=== PATIENT | female | born 1970 | race Two or more races ===

== ENCOUNTER 2023-08-27 15:59 | Inpatient (IN) | payer OTHER ==
[~2023-08-27] VITALS: Ht 160 cm; Wt 88.5 kg
[2023-08-27] MEDS ORDERED: ZOLOFT100 MG PO (16:26)
[2023-08-27] MEDS ORDERED: RELAFEN DS1000 MG (16:27)
[2023-08-27] MEDS ORDERED: KETOROLAC TROMETHAMINE 60 MG VIAL IM ONE (18:00)
[2023-08-27 18:47] LABS: HEMATOCRIT 33.6 % (36.0-45.00); HEMOGLOBIN 11.1 g/dL (12.0-15.00); MEAN CELL VOLUME 70.3 fL (80.00-100.00); MEAN CORPUSCULAR HEMOGLOBIN 23.2 pg (27.00-32.0); PLATELET COUNT 607 K/uL (150-450); RED BLOOD COUNT 4.78 M/uL (4.00-6.00); RED CELL DISTRIBUTION WIDTH 16.6 % (11.5-14.5)
[2023-08-27 18:49] LABS: ERYTHROCYTE SEDIMENTATION RATE 111 mm/hr
[2023-08-27 19:18] LABS: CALCIUM 9.1 mg/dL (8.5-10.1); CREATININE SERUM 0.7 mg/dL (0.55-1.02); GFR 87.2; POTASSIUM 3.42 mEq/L (3.5-5.1); URIC ACID 3.6 mg/dL (2.5-7.5)
[2023-08-27 19:23] LABS: C-REACTIVE PROTEIN 14.3 MG/DL (0.00-0.29)
[2023-08-27 20:56] LABS: ABG PH 7.444 (7.35-7.45); ABG pCO2 33.9 mmHg (35-45)
[2023-08-27 20:57] LABS: BASE EXCESS -0.6 mmol/l; BICARBONATE 22.7 mmol/l (23-25); SaO2 94.3 %; Tco2 23.8 mmol/l; allen test SATISFACTORY; o2 21 %; puncture site RADIAL RIGHT
[2023-08-27] MEDS ORDERED: CEFTRIAXONE SODIUM 1,000 MG VIAL IV ONE (21:45)
[2023-08-27] MEDS ORDERED: OSELTAMIVIR PHOSPHATE 75 MG CAPSULE PO ONE (21:45)
[2023-08-27] MEDS ORDERED: AZITHROMYCIN 500 MG VIAL IV ONE (21:45)
[2023-08-27] MEDS ORDERED: ACETAMINOPHEN 500 MG GEL..CAP PO PRN (23:15)
[2023-08-28 01:56] LABS: FERRITIN 141.2 NG/ML (8-252)
[2023-08-28 02:05] LABS: C-REACTIVE PROTEIN 15.9 MG/DL (0.00-0.29)
[2023-08-28 07:43] LABS: HEMATOCRIT 31.2 % (36.0-45.00); HEMOGLOBIN 10.3 g/dL (12.0-15.00); MEAN CELL VOLUME 70.2 fL (80.00-100.00); MEAN CORPUSCULAR HEMOGLOBIN 23.1 pg (27.00-32.0); MEAN CORPUSCULAR HGB CONC 32.9 g/dl (32.0-36.0); PLATELET COUNT 573 K/uL (150-450); RED BLOOD COUNT 4.44 M/uL (4.00-6.00); RED CELL DISTRIBUTION WIDTH 16.7 % (11.5-14.5)
[2023-08-28 08:09] LABS: ALBUMIN 2.4 gm/dL (3.4-5.0); BILIRUBIN TOTAL 0.23 mg/dL (0.3-1.2); CALCIUM 8.5 mg/dL (8.5-10.1); CREATININE SERUM 0.45 mg/dL (0.55-1.02); GFR 145.2; GLOBULINA 4.4 G/DL (2.4-3.5); POTASSIUM 3.61 mEq/L (3.5-5.1); TOTAL PROTEIN 6.8 gm/dL (6.4-8.2)
[2023-08-28 08:19] LABS: INR 1.05; PARTIAL THROMBOPLASTIN TIME 30.8 SECONDS (22.0-34.0)
[2023-08-28] MEDS ORDERED: AZITHROMYCIN 500 MG in DEXTROSE 5 % IN WATER 250 ML IV SCH (09:00)
[2023-08-28] MEDS ORDERED: CEFTRIAXONE SODIUM 2,000 MG in DEXTROSE 5 % IN WATER 100 ML IV SCH (09:00)
[2023-08-28] MEDS ORDERED: OSELTAMIVIR PHOSPHATE 75 MG CAPSULE PO SCH (09:00)
[2023-08-28] MEDS ORDERED: DEXAMETHASONE SODIUM PHOSPHATE 4 MG/ML VIAL IV SCH (09:00)
[2023-08-28] MEDS ORDERED: REMDESIVIR 100 MG VIAL IV ONE (16:00)
[2023-08-29 07:06] LABS: URINE APPEARANCE Clear; URINE BILIRRUBIN Negative (NEGATIVE); URINE BLOOD Negative; URINE COLOR Yellow; URINE GLUCOSE Negative (NEGATIVE); URINE LEUKOCYTE Negative; URINE NITRATE Negative; URINE PROTEIN Negative (NEGATIVE)
[2023-08-29 07:07] LABS: URINE BACTERIA 56.6 uL (0.0-1933); URINE EPITHELIAL CELLS 13.1 uL (0.0-38.8); URINE RBC 3.5 uL (0.0-20.8); URINE WBC 3.7 uL (0.0-23.2)
[2023-08-29 07:11] LABS: FERRITIN 124.1 NG/ML (8-252)
[2023-08-29 07:17] LABS: C-REACTIVE PROTEIN 8.83 MG/DL (0.00-0.29)
[2023-08-29 08:35] LABS: MYCOPLASMA PNEUMONIAE IGM NON REACTIVE (NO REACTIVE)
[2023-08-29 09:39] LABS: RF POSITIVE (NEGATIVE)
[2023-08-29 15:45] LABS: RAPID PLASMA REAGIN NONREACTIVE BY RPR (NONREACTIVE)
[2023-08-29] MEDS ORDERED: REMDESIVIR 100 MG VIAL IV SCH (17:00)
[2023-08-30 06:16] LABS: HEMATOCRIT 32.8 % (36.0-45.00); MEAN CELL VOLUME 71.2 fL (80.00-100.00); MEAN CORPUSCULAR HGB CONC 33.7 g/dl (32.0-36.0); PLATELET COUNT 683 K/uL (150-450); RED BLOOD COUNT 4.61 M/uL (4.00-6.00); RED CELL DISTRIBUTION WIDTH 16.2 % (11.5-14.5)
[2023-08-30 06:43] LABS: ALBUMIN 2.5 gm/dL (3.4-5.0); BILIRUBIN TOTAL 0.16 mg/dL (0.3-1.2); CALCIUM 9.1 mg/dL (8.5-10.1); CREATININE SERUM 0.47 mg/dL (0.55-1.02); GFR 138.09; GLOBULINA 4.8 G/DL (2.4-3.5); MAGNESIUM 2.3 mg/dL (1.8-2.4); POTASSIUM 3.94 mEq/L (3.5-5.1); TOTAL PROTEIN 7.3 gm/dL (6.4-8.2)
[2023-08-31 08:59] LABS: FERRITIN 80.2 NG/ML (8-252)
[2023-08-31 09:00] LABS: C-REACTIVE PROTEIN 2.6 MG/DL (0.00-0.29)
[2023-08-31] MEDS ORDERED: SOD FERRIC GLUC COMPLX/SUCROSE 62.5 MG in 0.9 % SODIUM CHLORIDE 50 ML IV SCH (13:28)
[2023-08-31] MEDS ORDERED: METHYLPREDNISOLONE 4 MG TABLET PO SCH (13:30)
[2023-08-31] MEDS ORDERED: HYDROXYCHLOROQUINE SULFATE 200 MG TABLET PO SCH (17:00)
[2023-08-31 19:45] LABS: FERRITIN 87.9 NG/ML (8-252)
[2023-08-31] MEDS ORDERED: FAMOTIDINE/PF 20 MG in 0.9 % SODIUM CHLORIDE 8 ML IV PUSH SCH (21:58)
[2023-09-01] MEDS ORDERED: RELAFEN DS1000 MG PO (10:43)
[2023-09-01] MEDS ORDERED: HYDROXYCHLOROQ200 MG PO (10:43)
[2023-09-01] MEDS ORDERED: Medrol PO (10:43)
[2023-09-01] MEDS ORDERED: PAIN RELIEVER500 M2 PO (10:43)
[2023-09-01] MEDS ORDERED: METHOTREXATE2.5 MG PO (10:43)
[2023-09-01] MEDS ORDERED: ZOLOFT100 MG PO (10:43)
[2023-09-07] MEDS ORDERED: METHOTREXATE SODIUM 2.5 MG TABLET PO SCH (09:00)
== END 2023-09-01 15:17 | disposition home or self-care (01) | DRG 177 ==
LOC: ER 15:59 → MEDJ 23:15
PROVIDERS: Internal Medicine; Internal Medicine Infectious Disease; Nurse Practitioner Family; ADMIT Internal Medicine; ATTEND Internal Medicine
PROC: BW24ZZZ Computerized Tomography (CT Scan) of Chest and Abdomen (ICD-10-PCS; 2023-08-27)
PROC: 4A12X4Z Monitoring of Cardiac Electrical Activity, External Approach (ICD-10-PCS; principal; 2023-08-28)
PROC: XW033E5 Introduction of Remdesivir Anti-infective into Peripheral Vein, Percutaneous Approach, New Technology Group 5 (ICD-10-PCS; 2023-08-28)
DX: U07.1 COVID-19 (principal); J12.82 Pneumonia due to coronavirus disease 2019; J10.1 Influenza due to other identified influenza virus with other respiratory manifestations; M06.9 Rheumatoid arthritis, unspecified; M25.562 Pain in left knee; M25.561 Pain in right knee; M25.542 Pain in joints of left hand; M25.541 Pain in joints of right hand